=== PATIENT | female | born 1960 | race Caucasian/White ===

== ENCOUNTER → 2016-06-23 | Outpatient (CLI) | payer BC ==
--- NOTE | 2016-06-23 11:08 | MM ---
Reason for exam: follow-up at short interval from prior study. Last mammogram was performed 6 months ago. History: Patient is postmenopausal and had first child at age 32. Took hormonal contraceptives for 16 years. Taking estrogen beginning at age 50. Physical Findings: Nurse did not find any significant physical abnormalities on exam. MG Diagnostic Mammo RT w CAD CC and MLO view(s) were taken of the right breast. Prior study comparison: December 11, 2015, right breast MG work up mamm w CAD RT. December 11, 2015, right breast US breast workup limited RT. November 20, 2015, bilateral MG screening mammo w CAD. March 22, 2014, bilateral MG screening mammo w CAD. February 13, 2013, bilateral digital screening mammo w/CAD. The breast tissue is heterogeneously dense. This may lower the sensitivity of mammography. The nodular asymmetry superiorly appears less defined with an appearance similar to older priors. These results were verbally communicated with the patient and result sheet given to the patient on 06/23/16. ASSESSMENT: Negative, BI-RAD 1 RECOMMENDATION: Return to routine screening mammogram schedule for both breasts. Back on schedule for November 2016.
== END | disposition home or self-care (01) ==
LOC: RADMAMWWP 10:17
PROVIDERS: ATTEND Obstetrics & Gynecology
DX: R92.8 Other abnormal and inconclusive findings on diagnostic imaging of breast (principal)

== ENCOUNTER → 2017-10-07 | Outpatient (CLI) | payer BC ==
--- NOTE | 2017-10-11 14:51 | MM ---
Reason for exam: screening (asymptomatic). Last mammogram was performed 1 year and 4 months ago. History: Patient is postmenopausal and had first child at age 32. Took hormonal contraceptives for 16 years. Taking estrogen beginning at age 50. Physical Findings: A clinical breast exam by your physician is recommended on an annual basis and results should be correlated with mammographic findings. MG Screening Mammo w CAD Bilateral CC and MLO view(s) were taken. Prior study comparison: June 23, 2016, right breast MG diagnostic mammo RT w CAD. December 11, 2015, right breast MG work up mamm w CAD RT. The breast tissue is heterogeneously dense. This may lower the sensitivity of mammography. There is no discrete abnormality. No significant changes when compared with prior studies. ASSESSMENT: Negative, BI-RAD 1 RECOMMENDATION: Routine screening mammogram of both breasts in 1 year.
== END | disposition home or self-care (01) ==
LOC: RADMAMWWP 14:33
PROVIDERS: ATTEND Obstetrics & Gynecology
DX: Z12.31 Encounter for screening mammogram for malignant neoplasm of breast (principal)
CPT/HCPCS: 77067

== ENCOUNTER → 2018-05-15 | Outpatient (CLI) | payer BC ==
--- NOTE | 2018-05-15 16:08 | XR ---
EXAMINATION TYPE: XR cervical spine comp DATE OF EXAM: 05/15/2018 COMPARISON: None HISTORY: 57-year-old female cervicalgia, chronic neck pain TECHNIQUE: 5 views FINDINGS: Uncovertebral joint and facet arthropathy especially in the mid cervical spine. Changes result in min imal to mild neural foraminal narrowing, particularly on the left at C3-C4, C4-C5 and C6-C7. Degenera tive changes at C1 dens articulation. No predental space widening or prevertebral soft tissue swellin g. The cervicothoracic junction is obscured by the patient's shoulders and not assessed. The remainin g cervical alignment is maintained. IMPRESSION: Mild spondylotic change especially in the mid cervical spine. There is minimal to mild neural foramin al narrowing particularly on the left as mentioned above. Note that the cervicothoracic junction is o bscured by the patient's shoulders and not assessed. Remaining alignment is maintained.
== END ==
LOC: RADXRYALE 13:07
PROVIDERS: ATTEND Physician Assistant Medical
DX: M48.02 Spinal stenosis, cervical region (principal); M47.812 Spondylosis without myelopathy or radiculopathy, cervical region
CPT/HCPCS: 72050

== ENCOUNTER → 2018-06-15 | Outpatient (CLI) | payer BC ==
--- NOTE | 2018-06-15 20:09 | MR ---
EXAMINATION TYPE: MR cervical spine wo con DATE OF EXAM: 06/15/2018 COMPARISON: None HISTORY: Neck pain, LUE radic CONTRAST: Performed utilizing 0 mL intravenous Gadavist gadolinium contrast. TECHNIQUE: Multiplanar multiecho imaging on a 3.0 Ashley magnet is performed through the cervical spin e. FINDINGS: The craniovertebral junction is normal. Vertebral body alignment is normal. T1-2: In the right paracentral region there is an isointense area measuring approximately 0.4 cm whic h has contact with the cord. Series 501 image 1. This is not identified on additional imaging may be artifact. Underlying abnormalities should be considered. Recommend follow-up contrast MRI cervical an d upper thoracic spine with attention to the T1-2 level. Disc herniation should be considered. Sagitt al plane images suggest disc bulging. C7-T1: No focal disc herniation or significant disc bulge is evident. No spinal canal stenosis or n eural foraminal stenosis is present. C6-7: Mild disc bulging has anterior thecal sac flattening. Minimal cord contact may be present. No s ahmet canal stenosis is present. Uncovertebral joint hypertrophy is contributing to moderate right an d mild left foraminal narrowing.. C5-6: Mild disc bulge has mild anterior thecal sac flattening. No cord contact or cord deformity is e vident. No spinal canal stenosis present. Neural foramen are patent.. C4-5: No focal disc herniation or significant disc bulge is evident. No spinal canal stenosis or yonis ral foraminal stenosis is present. C3-4: No focal disc herniation or significant disc bulge is evident. No spinal canal stenosis or yonis ral foraminal stenosis is present. C2-3: No focal disc herniation or significant disc bulge is evident. No spinal canal stenosis or yonis ral foraminal stenosis is present. There is a suggestion of minimal syrinx present on the sagittal T2-weighted images. This could be fur ther evaluated with a contrast MRI cervical spine. IMPRESSIONS: 1. Suggestion of a very minimal syrinx. Additional evaluation with contrast MRI through the cervical spine is recommended. 2. Possible disc herniation or other abnormality at the T1-2 level at the edge the [id number]. Thi s is incompletely evaluated and potentially could be artifact. The contrast MRI cervical spine could further evaluate this area the same time with attention to this level. 3. Uncovertebral joint hypertrophy contributing to foraminal narrowing at the C6-7 level A Yellow level critical message alert has been initiated for Theo Michael DO via the [employer] Critical Results System on 06/15/2018 8:06 PM. This message alert has been sent to Theo mckinnon DO via the preferences provided by the clinician for the receipt of Radiology Critical Findings. Message ID [id number].
== END | disposition home or self-care (01) ==
LOC: RADMRIMAIN 19:20
PROVIDERS: ATTEND Family Medicine
DX: M99.71 Connective tissue and disc stenosis of intervertebral foramina of cervical region (principal)
CPT/HCPCS: 72141

== ENCOUNTER → 2018-06-30 | Outpatient (CLI) | payer BC ==
--- NOTE | 2018-07-01 14:05 | MR ---
EXAMINATION TYPE: MR cervical spine w con DATE OF EXAM: 06/30/2018 COMPARISON: 06/15/2018 HISTORY: Neck, lt shoulder pain, abn MRI, call back for contrast only TECHNIQUE: Multiplanar, multisequence images of the cervical spine were acquired utilizing 10 mL intravenous Finesse avist gadolinium contrast. The cervical vertebra have normal alignment. Disc spaces are fairly normal. Contrast images show no p athologic enhancement. There is small posterior disc bulging at T1-T2. There is no spinal stenosis. T here is no evidence of a mass involving the cervical spinal cord. Previous exam shows slight increase d signal within the cord of the cervical spine suggestive of minimal syrinx. There is no evidence of cord expansion. The visualized brainstem appears normal. Fourth ventricle appears normal. IMPRESSION: Contrast images show no evidence of a spinal cord mass. There is a minimal posterior central and left side T1-T2 disc herniation. No significant spinal stenosis.
== END | disposition home or self-care (01) ==
LOC: RADMRIMAIN 18:21
PROVIDERS: ATTEND Family Medicine
DX: R93.89 Abnormal findings on diagnostic imaging of other specified body structures (principal)
CPT/HCPCS: 72142; A9585

== ENCOUNTER → 2018-09-26 | Outpatient (CLI) | payer BC ==
--- NOTE | 2018-09-26 11:48 | XR ---
EXAMINATION TYPE: XR finger RT DATE OF EXAM: 09/26/2018 COMPARISON: NONE HISTORY: Glass foreign body in the right ring finger at the distal interphalangeal joint for approxim ately 3 weeks TECHNIQUE: 2 views of the right ring finger/fourth digit were obtained. FINDINGS: No acute fracture or dislocation of the right fourth digit. There is focal soft tissue swel ling of the volar fourth digit just proximal to the distal interphalangeal joint without radiopaque f oreign body seen. Punctate probable ossicle is seen adjacent to the proximal interphalangeal joint of the fourth digit at the ulnar aspect. No soft tissue swelling is seen surrounding this. IMPRESSION: Focal soft tissue swelling of the volar fourth digit just proximal to the distal interpha langeal joint without radiopaque foreign body visualized.
== END | disposition home or self-care (01) ==
LOC: RADXRYALE 11:07
PROVIDERS: ATTEND Family Medicine
DX: M79.89 Other specified soft tissue disorders (principal)

== ENCOUNTER → 2018-11-17 | Outpatient (CLI) | payer BC ==
--- NOTE | 2018-11-21 08:10 | MM ---
Reason for exam: screening (asymptomatic). Last mammogram was performed 1 year and 1 month ago. History: Patient is postmenopausal and had first child at age 32. Took hormonal contraceptives for 16 years. Taking estrogen beginning at age 50. Physical Findings: A clinical breast exam by your physician is recommended on an annual basis and results should be correlated with mammographic findings. MG Screening Mammo w CAD Bilateral CC and MLO view(s) were taken. XCCL view(s) were taken of the right breast. Prior study comparison: October 07, 2017, bilateral MG screening mammo w CAD. June 23, 2016, right breast MG diagnostic mammo RT w CAD. There are scattered fibroglandular densities. No significant changes when compared with prior studies. ASSESSMENT: Benign, BI-RAD 2 RECOMMENDATION: Routine screening mammogram of both breasts in 1 year.
== END | disposition home or self-care (01) ==
LOC: RADMAMWWP 07:05
PROVIDERS: ATTEND Obstetrics & Gynecology
DX: Z12.31 Encounter for screening mammogram for malignant neoplasm of breast (principal)
CPT/HCPCS: 77067

== ENCOUNTER → 2020-02-15 | Outpatient (CLI) | payer BC ==
--- NOTE | 2020-02-18 08:48 | MM ---
Reason for exam: screening (asymptomatic). Last mammogram was performed 1 year and 3 months ago. History: Patient is postmenopausal and had first child at age 32. Took hormonal contraceptives for 16 years. Taking estrogen beginning at age 50. Physical Findings: A clinical breast exam by your physician is recommended on an annual basis and results should be correlated with mammographic findings. MG Screening Mammo w CAD Bilateral CC and MLO view(s) were taken. XCCL view(s) were taken of the right breast. Prior study comparison: November 17, 2018, bilateral MG screening mammo w CAD. October 07, 2017, bilateral MG screening mammo w CAD. The breast tissue is heterogeneously dense. This may lower the sensitivity of mammography. No significant changes when compared with prior studies. ASSESSMENT: Benign, BI-RAD 2 RECOMMENDATION: Routine screening mammogram of both breasts in 1 year.
== END | disposition home or self-care (01) ==
LOC: RADMAMWWP 09:20
PROVIDERS: ATTEND Obstetrics & Gynecology
DX: Z12.31 Encounter for screening mammogram for malignant neoplasm of breast (principal)
CPT/HCPCS: 77067

== ENCOUNTER → 2020-12-26 | Outpatient (CLI) | payer BC ==
--- NOTE | 2020-12-26 17:46 | MR ---
EXAMINATION TYPE: MR brain and iac wo/w con DATE OF EXAM: 12/26/2020 COMPARISON: EXAMINATION TYPE: MR brain and iac wo/w con DATE OF EXAM: 12/26/2020 COMPARISON: None HISTORY: Tinnitus and hearing loss in Right Ear. TECHNIQUE: Multiplanar, multisequence images of the brain and brainstem is performed without and with IV contras t, utilizing 9.5 mL intravenous Gadavist . FINDINGS: Diffusion weighted images demonstrate no evidence of a recent infarct or other diffusion ab normality. There is no extra-axial fluid collection or significant white matter signal abnormality. The ventricular system and cisternal spaces are normal in size and appearance. The brain volume is age appropriate. Minimal burden of T2/FLAIR signal abnormality in the periventricular and subcortical white matter. Midline structures demonstrate normal morphology. The craniocervical junction appears within normal limits. Post contrast images are slightly degraded by motion however demonstrate no abnormal enhance ment. The dural venous sinuses appear patent. Minimal mucosal disease in the left frontal sinus other delacruz the visualized sinuses are clear and the globes are intact. Cerebellopontine angle cisterns, the internal auditory canals, cranial nerve VII and VIII are within normal limits bilaterally. The inner ear structures have normal fluid signal. IMPRESSION: Unremarkable acoustic protocol brain MRI.
== END | disposition home or self-care (01) ==
LOC: RADMRIMAIN 08:15
PROVIDERS: ATTEND Otolaryngology
DX: H93.11 Tinnitus, right ear (principal)
CPT/HCPCS: 70553; A9585

== ENCOUNTER → 2021-03-17 | Outpatient (CLI) | payer BC ==
--- NOTE | 2021-03-19 11:24 | MM ---
Reason for exam: screening (asymptomatic). Last mammogram was performed 1 year and 1 month ago. History: Patient is postmenopausal and had first child at age 32. Took hormonal contraceptives for 16 years. Taking estrogen beginning at age 50. Physical Findings: A clinical breast exam by your physician is recommended on an annual basis and results should be correlated with mammographic findings. MG Screening Mammo w CAD Bilateral CC and MLO view(s) were taken. Prior study comparison: February 15, 2020, bilateral MG screening mammo w CAD. November 17, 2018, bilateral MG screening mammo w CAD. October 07, 2017, bilateral MG screening mammo w CAD. There are scattered fibroglandular densities. Finding: There is a new 5 mm lobulated mass in the outer quadrant, middle position of the right breast. New finding since February 15, 2020, November 17, 2018, and October 07, 2017. ASSESSMENT: Incomplete: need additional imaging evaluation, BI-RAD 0 RECOMMENDATION: Special view mammogram of the right breast. If lesion persists on supplemental views, image directed ultrasound is recommended. [facility] will attempt to contact patient to return for supplemental views and ultrasound if indicated.
== END | disposition home or self-care (01) ==
LOC: RADMAMWWP 09:25
PROVIDERS: ATTEND Obstetrics & Gynecology
DX: Z12.31 Encounter for screening mammogram for malignant neoplasm of breast (principal); Z78.0 Asymptomatic menopausal state
CPT/HCPCS: 77067

== ENCOUNTER → 2021-03-19 | Outpatient (CLI) | payer BC ==
--- NOTE | 2021-03-20 11:09 | MM ---
Reason for exam: additional evaluation requested from abnormal screening. Last mammogram was performed less than 1 month ago. History: Patient is postmenopausal and had first child at age 32. Took hormonal contraceptives for 16 years. Taking estrogen beginning at age 50. Physical Findings: Nurse did not find any significant physical abnormalities on exam. MG 3D Work Up W/Cad RT LM and spot compression MLO view(s) were taken of the right breast. Prior study comparison: March 17, 2021, bilateral MG screening mammo w CAD. February 15, 2020, bilateral MG screening mammo w CAD. The breast tissue is heterogeneously dense. This may lower the sensitivity of mammography. The nodular MLO asymmetric density completely disperses on additional views. These results were verbally communicated with the patient and result sheet given to the patient on 03/19/21. ASSESSMENT: Benign, BI-RAD 2 RECOMMENDATION: Return to routine screening mammogram schedule for both breasts.
== END | disposition home or self-care (01) ==
LOC: RADMAMWWP 14:16
PROVIDERS: ATTEND Obstetrics & Gynecology
DX: N64.89 Other specified disorders of breast (principal); Z78.0 Asymptomatic menopausal state
CPT/HCPCS: 77061; 77065

== ENCOUNTER → 2021-05-28 | Outpatient (CLI) | payer BC | END | disposition home or self-care (01) | LOC: LABPAT 10:50 | PROVIDERS: ATTEND Family Medicine | DX: Z20.822 Contact with and (suspected) exposure to COVID-19 (principal) | CPT/HCPCS: U0003; C9803; U0005 ==

== ENCOUNTER 2021-08-03 08:27 | Day surgery (SDC) | payer BC ==
[2021-07-29 15:04] VITALS: BMI 34.4
--- NOTE | 2021-08-03 07:34 | P.GSHP ---
History of Present Illness H&P Date: 08/03/21 CHIEF COMPLAINT: Colon screen HISTORY OF PRESENT ILLNESS: The patient is a 61-year-old female who presents for colon screen. Lower endoscopy was offered for further evaluation and management. PAST MEDICAL HISTORY: Please see list. PAST SURGICAL HISTORY: Please see list. MEDICATIONS: Please see list. ALLERGIES: Please see list. SOCIAL HISTORY: No illicit drug use FAMILY HISTORY: No reports of Crohn disease or ulcerative colitis. REVIEW OF ORGAN SYSTEMS: CONSTITUTIONAL: No reports of fevers or chills. PHYSICAL EXAM: VITAL SIGNS: Stable GENERAL: Well-developed pleasant in no acute distress. HEENT: No scleral icterus. Extraocular movements grossly intact. Moist buccal mucosa. NECK: Supple without lymphadenopathy. CHEST: Unlabored respirations. Equal bilateral excursions. CARDIOVASCULAR: Regular rate and rhythm. Distal 2+ pulses. ABDOMEN: Soft, nontender, nondistended. MUSCULOSKELETAL: No clubbing, cyanosis, or edema. ASSESSMENT: 1. Colon screen. PLAN: 1. Recommend proceeding with a lower endoscopy Past Medical History Past Medical History: Hyperlipidemia, Thyroid Disorder Additional Past Medical History / Comment(s): + COLOGARD TEST History of Any Multi-Drug Resistant Organisms: MRSA Date of last positivie culture/infection: 2016 MDRO Source:: BUTT CRACK Past Surgical History: Orthopedic Surgery Additional Past Surgical History / Comment(s): left knee arthroscopy, ,COLONOSCOPY. HAS HAD NUMEROUS CYSTS IN DIFFERENT AREAS OF BODY-SOME HAVE HAD TO BE LANCED, INCLUDING UNDER BREAST, UNDER ARM, GROIN, INTERGLUTEAL CLEFT (BUTTCRACK) Past Anesthesia/Blood Transfusion Reactions: No Reported Reaction Smoking Status: Never smoker - Past Family History Father Family Medical History: Cancer Medications and Allergies Home Medications Medication Instructions Recorded Confirmed Type Biest Hormonal Cream 1 applicate TOPICAL BID 03/26/21 05/27/21 History Levothyroxine Sodium [Synthroid] 75 mcg PO DAILY 03/26/21 05/27/21 History RX: Doxycycline Monohydrate 100 mg PO DIRECTED 03/26/21 05/27/21 History Rosuvastatin Calcium [Crestor] 20 mg PO HS 03/26/21 05/27/21 History traZODone HCL [Desyrel] 25 mg PO HS PRN 03/26/21 05/27/21 History Allergies Allergy/AdvReac Type Severity Reaction Status Date / Time Sulfa (Sulfonamide Allergy Swelling Verified 07/29/21 14:49 Antibiotics)
[~2021-08-03 08:27] MED LIST: LACTATED RINGERS 1,000 ML IV SCH; LIDOCAINE 1% (10MG/ML) FOR IV START INTRADERMA PRN
[2021-08-03] MEDS ORDERED: LACTATED RINGERS 1,000 ML IV ONE (09:00)
[2021-08-03] MEDS ORDERED: PROPOFOL 10 MG/ML 20 ML VIAL IV ONE (09:01)
[2021-08-03 09:02] VITALS: TEMP 97.8
[2021-08-03] MEDS ORDERED: IV FLUID CONTINUATION 1,000 ML IV ONE (09:24)
--- NOTE | 2021-08-03 09:33 | P.PCN ---
Date of Procedure: 08/03/21 Description of Procedure: PREOPERATIVE DIAGNOSIS: Colonoscopy screening POSTOPERATIVE DIAGNOSIS: Tubular adenoma ascending colon, proximal Descending colon polyp Ileal cecal valve polyp OPERATION: Colonoscopy to the ileocecal valve and appendiceal orifice, cecum Colonoscopy with hot snare polypectomy Colonoscopy with cold forceps biopsy SURGEON: Meenu Altamirano MD. ANESTHESIA: MAC. INDICATIONS: The patient is an 61-year-old male who presents family history of malignant colon polyps and personal history of colon polyps. Last colonoscopy 5 years. Benefits and risks were described and informed consent was obtained. DESCRIPTION OF PROCEDURE: The patient had undergone Sutab prep. The patient had been brought into the operating room and laid in the left lateral decubitus position. After adequate intravenous sedation, the rectum was examined with 2% lidocaine jelly. The prostate was unremarkable. External hemorrhoids were encountered. The rectal tone was within normal limits. No lesions were palpated in the rectal vault. An Olympus colonoscope was advanced until the cecum, ileocecal valve and appendiceal orifice were clearly viewed. The prep was fair. No sigmoid diverticulosis was encountered. Colonic polyps were found and removed. No evidence of focal colitis was found. Retroflexion of the scope demonstrated grade 2 internal hemorrhoids without active bleeding or inflammation. The colon was desufflated. The patient had tolerated the procedure well. Withdrawal time was over 6 minutes. FINDINGS: Aronchick preparation quality scale 2+ (1-5) Internal hemorrhoids, grade 1 External hemorrhoids, grade 1 No arteriovenous malformations. No large sigmoid diverticulosis Removal of 3 polyps: - Snare polypectomy proximal ascending colon, 11 mm tubulovillous adenoma polyp. - Cold forceps biopsy at descending colon, 4 mm polyp. - Cold forceps biopsy at ileal cecal valve, 3 mm polyp. No focal colitis. RECOMMENDATIONS: Repeat colonoscopy in 3 years, 2024 Plan - Discharge Summary Discharge Rx Participant: Yes New Discharge Prescriptions: Continue Rosuvastatin Calcium [Crestor] 20 mg PO HS Biest Hormonal Cream 1 applicate TOPICAL BID Doxycycline Monohydrate 100 mg PO DIRECTED traZODone HCL [Desyrel] 25 mg PO HS PRN PRN Reason: sleep Levothyroxine Sodium [Synthroid] 75 mcg PO DAILY Discharge Medication List Biest Hormonal Cream 1 applicate TOPICAL BID 03/26/21 [History] Doxycycline Monohydrate 100 mg PO DIRECTED 03/26/21 [History] Levothyroxine Sodium [Synthroid] 75 mcg PO DAILY 03/26/21 [History] Rosuvastatin Calcium [Crestor] 20 mg PO HS 03/26/21 [History] traZODone HCL [Desyrel] 25 mg PO HS PRN 03/26/21 [History] Follow up Appointment(s)/Referral(s): Meenu Altamirano MD [STAFF PHYSICIAN] - As Needed Patient Instructions/Handouts: Colorectal Polyps (GEN), *Surgery [facility] - (Anesthesia) Endoscopy Discharge Instructions, Colonoscopy (DC) Activity/Diet/Wound Care/Special Instructions: Repeat colonoscopy in 3 years, 2024 Discharge Disposition: HOME SELF-CARE
[2021-08-03 09:39] VITALS: BP 109/75; PULSE 66; RESP 14
== END 2021-08-03 09:57 | disposition home or self-care (01) ==
LOC: ORWHC2ENDO 08:27
PROVIDERS: ATTEND Surgery Plastic and Reconstructive Surgery
DX: Z12.11 Encounter for screening for malignant neoplasm of colon (principal); D12.2 Benign neoplasm of ascending colon; D12.4 Benign neoplasm of descending colon; E78.5 Hyperlipidemia, unspecified; E07.9 Disorder of thyroid, unspecified
CPT/HCPCS: 45380; 45385; 88305; J2704

== ENCOUNTER → 2022-01-29 | Outpatient (CLI) | payer BC ==
--- NOTE | 2022-01-30 08:51 | XR ---
EXAMINATION TYPE: XR foot complete 3 views LT DATE OF EXAM: 01/29/2022 Comparison: None Clinical History: 61-year-old female [id number] LT FOOT PAIN Findings: Bipartite fibular sesamoid. Mild degenerative change first MTP joint. Moderate-sized plantar heel spu r. There is some dorsal soft tissue swelling noted along the midfoot. Questionable lucency seen exten ding obliquely along the mid to distal cuboid bone on the oblique view only. Otherwise, no acute frac ture, subluxation, dislocation seen. Impression: 1. Questionable lucency involving the cuboid bone seen only on the oblique view. If there is focal pa in here and recent injury, a nondisplaced fracture is not excluded. Further CT evaluation if clinical ly indicated. 2. 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 Plantar heel spur. Some nonspecific dorsal midfoot soft tissu e swelling.
== END | disposition home or self-care (01) ==
LOC: RADXRYALE 16:40
PROVIDERS: ATTEND Physician Assistant Medical
DX: M19.072 Primary osteoarthritis, left ankle and foot (principal)

== ENCOUNTER → 2022-03-22 | Outpatient (CLI) | payer BC ==
--- NOTE | 2022-03-23 08:56 | MM ---
Reason for Exam: Screening (asymptomatic). Last screening mammogram was performed 12 month(s) ago. Patient History: Menarche at age 16. First Full-Term at age 32. Late child-bearing (after 30). Postmenopausal. Estrogen, from age 50 until age 61. Hormonal Contraceptives for 16 years until age 44. Risk Values: Nadine 5 year model risk: 1.8%. NCI Lifetime model risk: 9.1%. Prior Study Comparison: 02/15/2020 Bilateral Screening Mammogram, [facility]. 03/17/2021 Bilateral Screening Mammogram, [facility]. 03/19/2021 Right Diagnostic Mammogram, [facility]. Tissue Density: The breast tissue is heterogeneously dense. This may lower the sensitivity of mammography. Findings: Analyzed By CAD. There is no suspicious group of microcalcifications or new suspicious mass in either breast. Overall Assessment: Negative, BI-RAD 1 Management: Screening Mammogram of both breasts in 1 year. A clinical breast exam by your physician is recommended on an annual basis and results should be correlated with mammographic findings. [facility] will attempt to contact patient to return for supplemental views and ultrasound if indicated. Electronically signed and approved by: Jorge Roger DO
== END | disposition home or self-care (01) ==
LOC: RADMAMWWP 15:21
PROVIDERS: ATTEND Obstetrics & Gynecology
DX: Z12.31 Encounter for screening mammogram for malignant neoplasm of breast (principal)
CPT/HCPCS: 77067

== ENCOUNTER → 2023-04-25 | Outpatient (CLI) | payer BC ==
--- NOTE | 2023-04-26 21:25 | MM ---
Reason for Exam: Screening (asymptomatic). Last mammogram was performed 1 year(s) and 1 month(s) ago. Patient History: Menarche at age 16. First Full-Term at age 32. Late child-bearing (after 31). Postmenopausal. Patient has history of breast feeding. Estrogen, from age 50 until age 61. Hormonal Contraceptives for 16 years until age 44. Risk Values: Nadine 5 year model risk: 1.9%. NCI Lifetime model risk: 8.9%. Prior Study Comparison: 03/17/2021 Bilateral Screening Mammogram, [facility]. 03/19/2021 Right Diagnostic Mammogram, [facility]. 03/22/2022 Bilateral MG screening mammo w CAD, [facility]. Tissue Density: There are scattered fibroglandular densities. Findings: Analyzed By CAD. There is no suspicious group of microcalcifications or new suspicious mass in either breast. Overall Assessment: Negative, BI-RAD 1 Management: Screening Mammogram of both breasts in 1 year. . Patient should continue monthly self-breast exams. A clinical breast exam by your physician is recommended on an annual basis. This exam should not preclude additional follow-up of suspicious palpable abnormalities. Note on Nadine scores and lifetime risk: 1. A Nadine score greater than 3% is considered moderate risk. If this is the case, consider specialist referral to assess eligibility for a risk reducing agent. 2. If overall lifetime risk for the development of breast cancer is 20% or higher, the patient may qualify for future screening with alternating mammogram and breast MRI. Electronically signed and approved by: Michel Mayo M.D. Radiologist
== END | disposition home or self-care (01) ==
LOC: RADMAMWWP 16:36
PROVIDERS: ATTEND Obstetrics & Gynecology
DX: Z12.31 Encounter for screening mammogram for malignant neoplasm of breast (principal); Z78.0 Asymptomatic menopausal state
CPT/HCPCS: 77067

== ENCOUNTER → 2023-04-27 | Outpatient (CLI) | payer BC ==
[2023-04-27 15:33] LABS: Rheumatoid Factor, Qnt <15 IU/mL (0-15)
== END | disposition home or self-care (01) ==
LOC: LABWHC1 09:53
PROVIDERS: ATTEND Otolaryngology
DX: M25.50 Pain in unspecified joint (principal); H91.90 Unspecified hearing loss, unspecified ear; R53.83 Other fatigue
CPT/HCPCS: 36415; 84443; 85652; 86038; 86431; 86780

== ENCOUNTER → 2023-05-24 | Outpatient (CLI) | payer BC ==
--- NOTE | 2023-05-24 15:47 | XR ---
EXAMINATION TYPE: XR abdomen 2V DATE OF EXAM: 05/24/2023 COMPARISON: None HISTORY: Abdomen pain TECHNIQUE: AP abdomen FINDINGS: Moderate fecal debris is seen in the colon. PEG tube is in the left upper quadrant. No free air is identified. No suspicious differential air-fluid levels are present. Scoliosis is within the lumbar spine. Psoas margins are normal. Organomegaly is not evident. IMPRESSION: 1. Moderate fecal retention
== END | disposition home or self-care (01) ==
LOC: RADXRYALE 15:29
PROVIDERS: ATTEND Physician Assistant Medical
DX: K56.41 Fecal impaction (principal); R10.84 Generalized abdominal pain
CPT/HCPCS: 74019

== ENCOUNTER → 2023-06-28 | Outpatient (CLI) | payer BC ==
--- NOTE | 2023-06-28 17:10 | US ---
EXAMINATION TYPE: US venous doppler duplex LE LT DATE OF EXAM: 06/28/2023 10:46 AM COMPARISON: NONE CLINICAL INDICATION: Female, 63 years old with history of R60.0 EDEMA M79.605 PAIN LEFT LEG; Pain and swelling x 1 week. No hx of DVT. Patient takes aspirin. SIDE PERFORMED: Left TECHNIQUE: The lower extremity deep venous system is examined utilizing real time linear array sonog agatha with graded compression, doppler sonography and color-flow sonography. VESSELS IMAGED: Common Femoral Vein Deep Femoral Vein Greater Saphenous Vein * Femoral Vein Popliteal Vein Small Saphenous Vein * Proximal Calf Veins Posterior tibial veins Peroneal veins (* superficial vessels) Left Leg: No evidence of DVT. IMPRESSION: No evidence for DVT within the left lower extremity.
== END | disposition home or self-care (01) ==
LOC: RADUSWWP 10:28
PROVIDERS: ATTEND Family Medicine
DX: R60.0 Localized edema (principal); M79.605 Pain in left leg

== ENCOUNTER → 2024-05-25 | Outpatient (CLI) | payer BC ==
--- NOTE | 2024-05-28 09:27 | MM ---
Reason for Exam: Screening (asymptomatic). Last mammogram was performed 1 year(s) and 1 month(s) ago. Patient History: Menarche at age 16. First Full-Term at age 32. Late child-bearing (after 31). Postmenopausal. Patient has history of breast feeding. Estrogen, from age 50 until age 61. Hormonal Contraceptives for 17 years until age 44. Risk Values: Nadine 5 year model risk: 1.9%. NCI Lifetime model risk: 8.6%. Prior Study Comparison: 03/19/2021 Right Diagnostic Mammogram, [facility]. 03/22/2022 Bilateral MG screening mammo w CAD, [facility]. 04/25/2023 Bilateral MG screening mammo w CAD, [facility]. Tissue Density: There are scattered areas of fibroglandular density. Analyzed By CAD. Overall Assessment: Benign, BI-RAD 2 Management: Screening Mammogram of both breasts in 1 year. Electronically signed and approved by: Kervin Castillo M.D.
== END | disposition home or self-care (01) ==
LOC: RADMAMWWP 16:27
PROVIDERS: ATTEND Obstetrics & Gynecology
DX: Z12.31 Encounter for screening mammogram for malignant neoplasm of breast (principal); Z78.0 Asymptomatic menopausal state; R92.323 Mammographic fibroglandular density, bilateral breasts
CPT/HCPCS: 77067